=== PATIENT | female | born 1970 | race Caucasian/White ===

== ENCOUNTER 2025-05-08 01:26 | Emergency (ER) | payer BC ==
[2025-05-08] MEDS: Sodium Chloride 0.9% 10 ML Syringe FLUSH PRN (01:40)
[2025-05-08 01:57] LABS: BLOOD UREA NITROGEN,BUN 11 mg/dL (7-18); CARBON DIOXIDE,CO2 28 mmol/L (21-32); CHLORIDE,CL 103 mmol/L (100-110); CREATININE 0.7 mg/dL (0.55-1.02); EST CRCL DRUG DOSING (CG) 81.71 mL/min; ESTIMATED GFR 102 mL/min (>60); GLUCOSE RANDOM 125 mg/dL (80-116); MEAN PLATELET VOLUME 7.2 fL (7.1-12.4); PLATELET COUNT,PLT 298 x10(3)uL (151-488); POTASSIUM,K 3.9 mmol/L (3.5-5.3); RED BLOOD CELL COUNT 3.31 x10(6)uL (3.60-5.20); RED CELL DISTRIBUTION WIDTH 16.2 % (12.3-16.5); SODIUM,NA 141 mmol/L (135-145); WHITE BLOOD CELL COUNT,WBC 13.9 x10-3/uL (3.0-10.3)
[2025-05-08 02:03] LABS: A/G RATIO 1.1; ALANINE AMINOTRANSFERASE,ALT 36 U/L (12-36); ASPARTATE AMNIOTRANSFERASE,AST 20 IU/L (5-25); BILIRUBIN TOTAL 0.3 mg/dL (0.1-1.3); PROTEIN TOTAL,TP 7.2 g/dL (6.0-8.0)
[2025-05-08 02:04] LABS: BAND PERCENT MAN 4 % (0-6); LYMPHOCYTES PERCENT MAN 8 % (13-37); MONOCYTES PERCENT MAN 5 % (4-12); SEG NEUTROPHILS PERCENT MAN 83 % (46-82)
== END 2025-05-08 04:13 | disposition home or self-care (01) ==
LOC: FB.ED 01:26 → SUPCPDRO 01:26 → FB.ED 04:13
DX: R55 Syncope and collapse (principal); Z88.5 Allergy status to narcotic agent
CPT/HCPCS: 36415; 71045; 80053; 83605; 84484; 85025; 93005; 99284